=== PATIENT | female | born 2005 | race Caucasian/White ===

== ENCOUNTER 2024-04-17 00:50 | Emergency (ER) | payer SELFPAY ==
[2024-04-17] MEDS ORDERED: Ondansetron PF 4 MG/2 ML Vial ONE (00:58)
[2024-04-17 01:16] LABS: #Basophils 0.07 10x3/uL (0.0-0.2); #Eosinophils 0.16 10x3/uL (0.0-0.5); #Monocytes 0.68 10x3/uL (0.0-1.1); #Neutrophils 7.38 10x3/uL (1.5-8.4); %Basophils 0.6 % (0.0-2.0); %Eosinophils 1.4 % (0.0-6.0); %Neutrophils 65.6 % (40.0-75.0); Hematocrit 41.6 % (34.9-44.5); Hemoglobin 14.1 g/dL (12.0-15.5); Mean Corpuscular HGB CONC 33.9 g/dL (32.0-36.0); Mean Corpuscular Volume 88.5 fL (81.6-98.3); Platelet Count 368 10x3/uL (150-450); RBC Distribution Width 12.7 % (11.5-14.5); White Blood Cell (WBC) Count 11.3 10x3/uL (3.5-10.5)
[2024-04-17 01:32] LABS: BHCG - Serum Negative (NEGATIVE)
[2024-04-17 01:33] LABS: Pregs Control Background? CLEAR/WHITE (CLR/WHITE); Pregs Control Bar Appear? YES (CONTROL BAR)
[2024-04-17 01:38] LABS: ALT (SGPT) 20 U/L (8-55); AST (SGOT) 20 U/L (5-30); Albumin 3.9 g/dL (3.5-5.0); Alkaline Phosphatase 53 U/L (40-100); Anion Gap 16 mmol/L (10-20); BUN (Urea Nitrogen) 7 mg/dL (8.4-21.0); Bilirubin, Total 1.2 mg/dL (0.2-1.2); Calc. Creatinine Clearance 0 mL/min (70-130); Calcium 8.6 mg/dL (7.8-10.44); Carbon Dioxide 19 mmol/L (22-29); Chloride 111 mmol/L (98-107); Estimated GFR 106; Globulin 3.1 g/dL (2.4-3.5); Glucose 121 mg/dL (70-105); Lipase 32 U/L (8-78); Magnesium 2.2 mg/dL (1.7-2.2); Potassium 3.4 mmol/L (3.5-5.1); Sodium 143 mmol/L (136-145)
== END 2024-04-17 03:56 | disposition home or self-care (01) ==
LOC: CSHERS 00:50
DX: F10.129 Alcohol abuse with intoxication, unspecified (principal); F90.9 Attention-deficit hyperactivity disorder, unspecified type; Z79.899 Other long term (current) drug therapy
CPT/HCPCS: 36415; 80053; 83690; 83735; 84703; 85025; 96374; J2405